=== PATIENT | female | born 2000 | race American Indian/Alaskan Native ===

== ENCOUNTER 2018-11-06 20:14 | Emergency (ER) | payer SELFPAY ==
[2018-11-06 20:40] VITALS: BP 124/68
[2018-11-06 21:41] LABS: Bacteria,Urine 1+ /HPF (Negative); Bilirubin,Urine NEG (Negative); Blood,Urine NEG (Negative); Color,Urine Yellow (Yellow); Mucus,Urine 3+ /HPF
[2018-11-06 21:48] LABS: HCG Qualitative,Urine Negative (Negative)
--- NOTE | 2018-11-06 21:58 | Emergency Department Report ---
ED General Adult HPI - General Chief complaint: Upper Respiratory Infection Stated complaint: COLD,CONGESTION, AND PREG TEST Source: patient, RN notes reviewed Mode of arrival: Ambulatory Limitations: No Limitations - History of Present Illness Initial comments: This is a 18-year-old female. The patient is not known to this provider previously. She does not have a primary care doctor. She reportedly recently moved here from [place]. She presents to the emergency room with multiple complaints. Complaint #1 is cough, cold, nasal congestion. Present for 2 days. This is painless. Does not radiate anywhere. Constant. Does not have exacerbating or relieving factors. She does not smoke. She reports people around her smoke. Complaint #2, his request for test. She reports irregular menstruation. She reports that she thinks that she might be . She denies dysuria, hematuria, urinary frequency. She denies headache, neck pain, chest pain, lower abdominal pain, severe shortness of breath, leg pain, leg swelling, additional symptoms. -: Gradual Consistency: intermittent Improves with: none Worsens with: none - Related Data Previous Rx's Medication Instructions Recorded Last Taken Type Ibuprofen [Motrin] 600 mg PO Q6H PRN #30 tablet 04/02/16 Unknown Rx oxyCODONE /ACETAMINOPHEN [Percocet 1 tab PO Q6HR PRN #30 tablet 04/02/16 Unknown Rx 5/325] Benzonatate [Tessalon Perles] 100 mg PO Q8HR PRN #30 capsule 11/06/18 Unknown Rx Cetirizine HCl [Cetirizine 5mg tab] 5 mg PO DAILY #30 tablet 11/06/18 Unknown Rx Fluticasone [Flonase] 1 spray NS QDAY #1 bottle 11/06/18 Unknown Rx Allergies Allergy/AdvReac Type Severity Reaction Status Date / Time No Known Allergies Allergy Unverified 03/31/16 12:35 ED Review of Systems ROS: Stated complaint: COLD,CONGESTION, AND PREG TEST Other details as noted in HPI Constitutional: denies: fever ENT: congestion Respiratory: cough Cardiovascular: denies: chest pain Gastrointestinal: denies: nausea, vomiting Genitourinary: denies: dysuria ED Past Medical Hx - Past Medical History Previous Medical History?: Yes Hx Headaches / Migraines: Yes (migraines) - Surgical History Past Surgical History?: Yes Additional Surgical History: Ovarian cyst removed 03/2017 with Ovary removed - Social History Smoking Status: Never Smoker - Medications Home Medications: Home Medications Medication Instructions Recorded Confirmed Last Taken Type Ibuprofen [Motrin] 600 mg PO Q6H PRN #30 tablet 04/02/16 Unknown Rx oxyCODONE /ACETAMINOPHEN [Percocet 1 tab PO Q6HR PRN #30 tablet 04/02/16 Unknown Rx 5/325] Benzonatate [Tessalon Perles] 100 mg PO Q8HR PRN #30 capsule 11/06/18 Unknown Rx Cetirizine HCl [Cetirizine 5mg tab] 5 mg PO DAILY #30 tablet 11/06/18 Unknown Rx Fluticasone [Flonase] 1 spray NS QDAY #1 bottle 11/06/18 Unknown Rx ED Physical Exam - General Limitations: No Limitations General appearance: alert, in no apparent distress - Head Head exam: Present: atraumatic, normocephalic - Eye Eye exam: Present: normal appearance, EOMI. Absent: nystagmus - ENT ENT exam: Present: normal exam, normal orophraynx, mucous membranes moist, TM's normal bilaterally, normal external ear exam - Neck Neck exam: Present: normal inspection, full ROM. Absent: tenderness, meningismus - Respiratory Respiratory exam: Present: normal lung sounds bilaterally. Absent: respiratory distress - Cardiovascular Cardiovascular Exam: Present: regular rate, normal rhythm, normal heart sounds. Absent: bradycardia, tachycardia, irregular rhythm, systolic murmur, diastolic murmur, rubs, gallop - GI/Abdominal GI/Abdominal exam: Present: soft. Absent: distended, tenderness, guarding, rebound, rigid, pulsatile mass - Extremities Exam Extremities exam: Present: normal inspection, full ROM, other (2+ pulses noted in the bilateral upper, lower extremities. Compartments soft. No long bony tenderness. The pelvis is stable.). Absent: joint swelling, calf tenderness - Back Exam Back exam: Present: normal inspection, full ROM. Absent: tenderness, CVA tenderness (R), CVA tenderness (L), paraspinal tenderness, vertebral tenderness - Neurological Exam Neurological exam: Present: alert, oriented X3, normal gait, other (Extraocular movements intact. Tongue midline. No facial droop. Facial sensation intact to light touch in the V1, V2, V3 distribution bilaterally. 5 and 5 strength in 4 extremities.. Sensation is intact to light touch in 4 extremities.). Absent: motor sensory deficit - Psychiatric Psychiatric exam: Present: normal affect, normal mood - Skin Skin exam: Present: warm, dry, intact, normal color. Absent: rash ED Course Vital Signs 11/06/18 20:33 Temperature 98.1 F Pulse Rate 84 Respiratory 18 Rate Blood Pressure 124/68 O2 Sat by Pulse 99 Oximetry ED Medical Decision Making - Lab Data Vital Signs 11/06/18 20:33 Temperature 98.1 F Pulse Rate 84 Respiratory 18 Rate Blood Pressure 124/68 O2 Sat by Pulse 99 Oximetry Lab Results 11/06/18 Range/Units 20:55 Urine Color Yellow (Yellow) Urine Turbidity Slightly-cloudy (Clear) Urine pH 6.0 (5.0-7.0) Ur Specific [place] 1.030 (1.003-1.030) Urine Protein 30 mg/dl (Negative) mg/dL Urine Glucose (UA) Neg (Negative) mg/dL Urine Ketones Neg (Negative) mg/dL Urine Blood Neg (Negative) Urine Nitrite Neg (Negative) Urine Bilirubin Neg (Negative) Urine Urobilinogen 4.0 (<2.0) mg/dL Ur Leukocyte Esterase Neg (Negative) Urine WBC (Auto) 2.0 (0.0-6.0) /HPF Urine RBC (Auto) 2.0 (0.0-6.0) /HPF U Epithel Cells (Auto) 9.0 (0-13.0) /HPF Urine Bacteria (Auto) 1+ (Negative) /HPF Urine Mucus 3+ /HPF Urine HCG, Qual Negative (Negative) - Medical Decision Making Differential diagnosis, including not limited to: Bronchitis, encounter for test, seasonal allergies Assessment and plan: 18-year-old female here with 2 complaints. She is found to be not by urinalysis. She can follow up with a metal hanger for her report of irregular menstruation. No focal pulmonary findings. Saturating well on room air. On multiple re- evaluations, noted to be playing and texting unnecessary telephone, and in no acute distress. She can be treated supportively/expectantly for her report of cold/upper respiratory tract symptoms. Does not appear to have an emergent medical condition at this time. The patient is medically suitable for discharge at this point in time. Critical care attestation.: If time is entered above; I have spent that time in minutes in the direct care of this critically ill patient, excluding procedure time. ED Disposition Clinical Impression: test negative, Nasal congestion Disposition: TO HOME OR SELFCARE Is pt being admited?: No Does the pt Need Aspirin: No Condition: Stable Additional Instructions: Take the medications as needed/directed. Follow up with a primary care doctor or metal hanger within the next month. Avoid exposure to tobacco, cigarettes, smoke products. Return to the emergency room right away with new, worsened or different symptoms, or symptoms not present on the initial emergency room evaluation. Referrals: [facility] [Provider Group] - 3-5 Days [facility] [Provider Group] - 3-5 Days [facility] [Provider Group] - 3-5 Days
== END 2018-11-06 23:12 | disposition home or self-care (01) ==
LOC: ED 20:14
DX: R09.81 Nasal congestion (principal); R05 Cough; J00 Acute nasopharyngitis [common cold]
CPT/HCPCS: 81001; 81025